=== PATIENT | female | born 1960 | race American Indian/Alaskan Native ===

== ENCOUNTER 2016-03-21 22:47 | Emergency (ER) | payer OTHER ==
[2016-03-21] MEDS ORDERED: NACL 0.9% 1000 ML 1,000 ML IV ONE ×2 (23:04→23:38)
[2016-03-21] MEDS ORDERED: VASELINE LIP THERAPY TP PRN (23:07)
[2016-03-21] MEDS ORDERED: ARTIFICIAL TEARS OPHTH OINT OU PRN (23:07)
[2016-03-21 23:32] LABS: Hematocrit 38.5 % (30.3-42.9); Hemoglobin 12.7 gm/dl (10.1-14.3); Mean Corpuscular HGB Conc 33 % (30-34); Mean Corpuscular Hemoglobin 31 pg (28-32); Mean Corpuscular Volume 93 fl (79-97); Platelet Count 357 K/mm3 (140-440); Red Blood Count 4.13 M/mm3 (3.65-5.03); Red Cell Distribution Width 13.5 % (13.2-15.2); White Blood Count 14.1 K/mm3 (4.5-11.0)
[2016-03-21] MEDS ORDERED: NACL 0.9% 500 ML IV SCH (23:45)
[2016-03-21 23:54] LABS: Alanine Aminotransferase 12 units/L (7-56); Albumin 4.4 g/dL (3.9-5); Albumin/Globulin Ratio 1.3 %; Alkaline Phosphatase 90 units/L (35-129); BUN/Creatinine Ratio 14.16; Bilirubin,Total < 0.2 mg/dL (0.1-1.2); Blood Urea Nitrogen 17 mg/dL (7-17); Calcium 9.1 mg/dL (8.4-10.2); Carbon Dioxide 25 mmol/L (22-30); Chloride 96.3 mmol/L (98-107); Creatine Kinase 60 units/L (30-135); Glucose 245 mg/dL (65-100); Sodium 140 mmol/L (137-145); Total Protein 7.7 g/dL (6.3-8.2)
[2016-03-22 00:07] LABS: Anion Gap 22 mmol/L
[2016-03-22 00:55] LABS: Urine Drugs of Abuse Note Disclamer
[2016-03-22 00:58] LABS: ISTAT Base Excess 0; ISTAT HCO3 25.4; ISTAT PCO2 44.1 (35-45); ISTAT PH 7.369 (7.35-7.45); ISTAT PO2 89 (80-105); ISTAT SO2 96; ISTAT TCO2 27
--- NOTE | 2016-03-22 01:17 | Emergency Department Report ---
ED General Adult HPI - General Chief complaint: Dyspnea/Respdistress Stated complaint: AMS Time Seen by Provider: 03/21/16 23:03 Source: EMS Mode of arrival: Stretcher Limitations: Altered Mental Status - History of Present Illness Initial comments: 55-year-old female presents to the emergency department via EMS for evaluation of altered mental status. Per report, the patient was at work when she was noticed by coworkers to have seizure-like activity. EMS was called. Upon their arrival, the patient was noted to be vomiting. Patient was administered 2 mg of Narcan, without improvement in her symptoms. Just as EMS was arriving in the emergency department, the patient began having agonal respirations with continued vomiting. Further history is unable to be obtained from the patient due to her clinical condition. -: Sudden, This evening Treatments Prior to Arrival: none - Related Data Home Medications Medication Instructions Recorded Confirmed Last Taken Unobtainable 03/21/16 03/21/16 Unknown Allergies Allergy/AdvReac Type Severity Reaction Status Date / Time No Known Allergies Allergy Verified 03/22/16 01:15 ED Review of Systems ROS: Stated complaint: AMS Other details as noted in HPI Comment: Unobtainable due to pts medical conditions ED Past Medical Hx - Past Medical History Previous Medical History?: Yes Hx Hypertension: Yes Hx Heart Attack/AMI: Yes Additional medical history: Obtained from family - Social History Smoking Status: Unknown if ever smoked - Medications Home Medications: Home Medications Medication Instructions Recorded Confirmed Last Taken Type Unobtainable 03/21/16 03/21/16 Unknown History ED Physical Exam - General Limitations: Altered Mental Status General appearance: obtunded - Head Head exam: Present: atraumatic, normocephalic - Eye Eye exam: Present: normal appearance, PERRL - ENT ENT exam: Present: normal exam, normal orophraynx, mucous membranes moist - Neck Neck exam: Present: normal inspection, full ROM. Absent: tenderness - Respiratory Respiratory exam: Present: respiratory distress (agonal respirations), other ( course breath sounds bilaterally) - Cardiovascular Cardiovascular Exam: Present: normal rhythm, tachycardia, normal heart sounds - GI/Abdominal GI/Abdominal exam: Present: soft, normal bowel sounds. Absent: distended, tenderness - Extremities Exam Extremities exam: Present: normal inspection, full ROM. Absent: tenderness - Back Exam Back exam: Present: normal inspection, full ROM. Absent: tenderness - Neurological Exam Neurological exam: Present: other (GCS 3 (E1, V1, M1)) - Skin Skin exam: Present: warm, dry, intact ED Course Vital Signs 03/21/16 03/21/16 03/21/16 22:50 22:57 23:07 Pulse Rate 102 H 62 Respiratory 10 L 24 Rate Blood Pressure 178/101 81/52 Blood Pressure [Right] O2 Sat by Pulse 97 98 Oximetry 03/21/16 03/21/16 03/22/16 23:42 23:57 00:10 Pulse Rate 87 72 70 Respiratory 16 16 16 Rate Blood Pressure Blood Pressure 79/47 78/49 82/48 [Right] O2 Sat by Pulse 95 95 98 Oximetry 03/22/16 03/22/16 03/22/16 00:20 01:59 02:07 Pulse Rate 69 58 L 60 Respiratory 16 16 Rate Blood Pressure Blood Pressure 81/52 107/77 113/87 [Right] O2 Sat by Pulse 99 95 100 Oximetry 03/22/16 03/22/16 03/22/16 02:08 02:24 03:12 Pulse Rate 58 L 54 L Respiratory 16 Rate Blood Pressure Blood Pressure 114/84 116/82 120/84 [Right] O2 Sat by Pulse 95 95 Oximetry - Reevaluation(s) Reevaluation #1: 03/22/16 01:41 Upon arrival, the patient was intubated by myself, see associated procedure no. Patient appears to have aspirated. After 2 L of normal saline, the patient remained hypotensive. A right internal jugular triple-lumen catheter was placed , see associated procedure no. Norepinephrine drip will be started. - Consultations Consultation #1: 03/22/16 03:30 CT findings were discussed with Dr. Duffy, neurosurgery at [place]. Patient has been accepted in transfer. - Central Line Placement Right IJ Consent Obtained: emergent situation Time Out Performed: Yes Patient Placed on Monitor/Pulse Ox: Yes MD Prep: mask, gown, gloves Central Line Prep: Chlorhexidine scrub, sterile drapes applied Ultrasound Used for Placement: Yes Central Line Lumen Inserted: triple Bloods Obtained for Lab: No Central Line Position: good blood return, all ports aspirated, flus, sutured in place with nyl Dressing Applied: Tegaderm Post Procedure X-Ray: tip of catheter in good p Patient Tolerated Procedure: well Complications: none - Intubation Time Out Performed: Yes Sedative: none Laryngoscope: Street Size: 3 ET Tube Size: 7.5 Tube Secured Depth (cm): 26 Tube Secured Location: lips Tube Placement Confirmation: visualized tube passing t, equal breath sounds bilat, no breath sounds over epi, confirmation by capnometr Patient Tolerated Procedure: well Intubation Complications: difficult intubation Additional Comments: Initial intubation attempt using a Dennis 3 blade resulted in esophageal intubation. This tube was removed. Glottic structures attempted to be visualized kaleidoscope, however this was unsuccessful as well. Patient was subsequently intubated through the use of a #3 Street blade. ED Medical Decision Making - Lab Data Result diagrams: 03/21/16 23:03 03/21/16 23:03 - EKG Data -: EKG Interpreted by Me EKG shows normal: sinus rhythm, axis, QRS complexes, ST-T waves Rate: normal - EKG Data When compared to previous EKG there are: previous EKG unavailable Interpretation: other (prolonged QT interval) - Radiology Data Radiology results: report reviewed, image reviewed interpreted by me: Chest x-ray shows ET tube in good position, as well as tip of central line. There is no acute cardiopulmonary abnormality. CT of the brain shows subarachnoid hemorrhage with intraventricular extension. - Medical Decision Making Lab and imaging results reviewed and discussed with the patient's family. Patient has been accepted in [place] [facility] [place]. Patient is awaiting transport. Patient will also be given 1 g of IV Keppra at the request of neurosurgery. - Differential Diagnosis seizure, drug overdose, ICH, hypoxic encephalopathy Critical care attestation.: If time is entered above; I have spent that time in minutes in the direct care of this critically ill patient, excluding procedure time. ED Disposition Clinical Impression: Subarachnoid hemorrhage Disposition: DC/TX SHORT-TERM GEN HOSP INPT Is pt being admited?: No Condition: Stable Time of Disposition: 03:37
[2016-03-22 01:21] LABS: Bilirubin,Urine NEG (Negative); Blood,Urine SM (Negative); Ketones,Urine NEG (Negative); Leukocyte Esterase,Urine NEG (Negative); Nitrite,Urine NEG (Negative); Urobilinogen,Urine < 2.0 mg/dL (<2.0); WBC,Urine < 1.0 /HPF (0.0-6.0)
[2016-03-22] MEDS ORDERED: LEVOPHED DRIP 4 MG/NS 250 ML 250 ML IV SCH (02:00)
[2016-03-22 02:30] LABS: Blastocytes % (Manual) 0 %
[2016-03-22 02:31] LABS: Anisocytosis 1+; Diff Status Complete; Hypochromasia 1+; Large Platelets Rare
--- NOTE | 2016-03-22 03:23 | Cat Scan Report ---
FINAL REPORT PROCEDURE: CT HEAD/BRAIN WO CON TECHNIQUE: Computerized tomography of the head was performed without contrast material. HISTORY: Altered Mental Status COMPARISON: No prior studies are available for comparison. FINDINGS: Skull and scalp: Normal. Paranasal sinuses: Mild opacification of the ethmoid and sphenoid sinuses. Ventricles and subarachnoid spaces: There is significant intraventricular hemorrhage. Diffuse subarachnoid hemorrhage is noted. No midline displacement is identified.. Cerebrum: With loss sulci as well as the basilar cisterns.. Cerebellum and brainstem: Subarachnoid hemorrhage is noted. There is loss of the basilar cisterns.. Vasculature: Normal. Comments: None. IMPRESSION: There is a large intraventricular hemorrhage identified involving the lateral, 3rd and 4th ventricles. Diffuse subarachnoid hemorrhage is noted. Moderate diffuse edema is identified. There is loss of the basilar cisterns. The above critical findings are discussed with the patient's ER physician Dr. Early at the time of dictation 0218 central standard time on 03/22/2016
[2016-03-22] MEDS ORDERED: KEPPRA 1,000 MG/NS 0.75% 100ML 100 ML IV ONE (03:32)
[2016-03-22 05:06] VITALS: BP 100/52
--- NOTE | 2016-03-22 08:32 | XRay Report ---
AP chest History: Altered mental status, endotracheal tube placement Findings: This exam is presented to me for interpretation. No comparison. An endotracheal tube has been inserted which terminates within 1 cm of the taina. Retraction by 2-3 cm recommended. A nasogastric tube is followed to the mid stomach. Heart and mediastinal structures are within normal limits. The lungs are clear. Impression: Recommended retraction of the endotracheal tube by 2-3 cm. No acute process is appreciated.
--- NOTE | 2016-03-22 08:34 | XRay Report ---
AP CHEST History: Central line placement. Findings: Compared to yesterday's exam at 2312 hrs. The endotracheal tube terminates at the taina. Retraction by 2-3 cm is recommended. Mild bibasilar atelectatic changes have developed. A nasogastric tube remains in good position. A right IJ venous catheter has been inserted which terminates in the right atrium. Heart and mediastinal structures are unremarkable. The lungs are clear other than bibasilar atelectasis. No pleural effusion or pneumothorax. Impression: The endotracheal tube terminates at the taina. Retraction is recommended. Right IJ venous catheter as described. No pneumothorax. Mild bibasilar atelectatic changes.
== END 2016-03-22 04:45 | disposition short-term general hospital (02) ==
LOC: ED 22:47
DX: I60.9 Nontraumatic subarachnoid hemorrhage, unspecified (principal); I10 Essential (primary) hypertension; I25.2 Old myocardial infarction
CPT/HCPCS: 31500; 36415; 36556; 51702; 70450; 71010; 80053; 80307; 81001; 81025; 82140; 82550; 82803; 84484; 85007; 85025; 87070; 87205; 93005; 93010; 96361; 96365; 96368; 99291; G0480; J1953; J7030; J7040; 80320; 94002